=== PATIENT | male | born 1975 | race Two or more races ===

== ENCOUNTER 2019-08-09 09:24 | Emergency (ER) | payer SELFPAY ==
[~2019-08-09] VITALS: Ht 177.8 cm; Wt 87.1 kg
--- NOTE | 2019-08-09 09:39 | NUR ---
ED Nurse Note: PT came in due to flu symptoms and c/o bodyache 9/10, chills, and fatigue. Pt denies N/V. Pt states taking tylenol 2 tabs at 0430 and ibuprofen 2 tabs 0800. Pt VSS, NAD, ERMD at bedside. Will continue to monitor patient.
[2019-08-09 09:42] VITALS: BP 120/82
[2019-08-09] MEDS ORDERED: IBUPROFEN200 MG ORAL (09:43)
[2019-08-09] MEDS ORDERED: TYLENOL EXTRA500 MG ORAL (09:43)
[2019-08-09] MEDS ORDERED: Oseltamivir 75mg cap ORAL ONE (09:45)
[2019-08-09] MEDS ORDERED: Acetaminophen 500mg (ES) tab ORAL ONE (09:45)
--- NOTE | 2019-08-09 09:45 | Emergency Room Report ---
History of Present Illness General Chief Complaint: Flu Like Symptoms Source: Patient Present Illness HPI Disclaimer: Please note that this report is being documented using [employer] technology. This can lead to erroneous entry secondary to incorrect interpretation by the dictating instrument. HPI: 44-year-old male presents for evaluation of flulike symptoms. Patient states he has felt diffuse body aches, fevers, sweats, chills, fatigue, headaches, nasal congestion and nonproductive cough since yesterday morning. He has been staying in the hospital with his girlfriend after she was recovering from surgery. She was diagnosed with influenza A several days ago. His symptoms began yesterday morning. He denies vomiting or diarrhea. Has been medicating himself with Tylenol and Motrin to control his fevers at home with good effect. Continues to eat and drink though he does report a decreased appetite. Denies any dysuria, hematuria, abdominal pain. PMH: Denies PSH: Reviewed Allergies: Denies Social Hx: Denies Allergies: Coded Allergies: No Known Allergies (Unverified , 08/09/19) Nursing Documentation-PMH Past Medical History: No History, Except For Hx Asthma: Yes Review of Systems All Other Systems: negative except mentioned in HPI Physical Exam Vital Signs Date Time Temp Pulse Resp B/P (MAP) Pulse Ox O2 Delivery O2 Flow Rate FiO2 08/09/19 09:30 99.7 120 16 121/80 (94) 95 Room Air General: Awake and alert, no acute distress HEENT: NC/AT. EOMI. noninjected sclera. No sinus tenderness. Neck: Supple, trachea midline, no cervical lymphadenopathy Cardiovascular: Tachycardic. S1 and S2 normal. No murmur appreciated Resp: Normal work of breathing. No cough, wheezing or crackles appreciated Abdomen: Abdomen is soft, nondistended. Nontender Skin: Intact. No abrasions, laceration or rash over the exposed skin MSK: Normal tone and bulk. Moving all extremities. No obvious deformity. Muscles are diffusely tender Neuro: Awake and alert. Mentating appropriately. Medical Decision Making Diagnostic Impression: Primary Impression: Influenza A ER Course 44-year-old male presents for evaluation of 1 day of flulike symptoms in the setting of exposure to influenza A from his girlfriend. Likely, the patient has influenza we will send a flu swab to confirm though given the high suspicion we will start treating with oseltamavir now. Last took Motrin approximately 3 hours ago. Will treat with Tylenol and hydrate orally here for his tachycardia. He is afebrile. Otherwise well-appearing and in no acute distress though does appear fatigued. Do not believe he requires other emergent labs, imaging or acute intervention at this time. Microbiology Date/Time Source Procedure Growth Status 08/09/19 09:38 Nasal Nares - Final Complete 08/09/19 09:38 Nasal Nares - Final Complete Reevaluation Time: 10:18 Last Vital Signs Date Time Temp Pulse Resp B/P (MAP) Pulse Ox O2 Delivery O2 Flow Rate FiO2 08/09/19 09:30 99.7 120 16 121/80 (94) 95 Room Air Reevaluation Impression Swabs returned positive for influenza A. He was given his first dose of Tamiflu here in the emergency department. Will be discharged on additional 5 days of Tamiflu. Continue NSAIDs to treat his fever and encouraged him to drink plenty of fluids to stay hydrated. Discussed hand hygiene with the patient. He is well-appearing and heart rate is improving after oral hydration and Tylenol. He will be discharged to follow-up with his PMD on an outpatient basis. Discussed reasons to return to the emergency department. He understands and agrees with this treatment plan. Disposition: HOME, SELF-CARE Condition: Stable Scripts Oseltamivir Phosphate (Tamiflu) 75 Mg Capsule 75 MG ORAL TWICE A DAY for 5 Days, #9 CAP Prov: Magno Kevin MD 08/09/19 Magno Kevin MD Aug 09, 2019 09:45
--- NOTE | 2019-08-09 09:45 | NUR ---
ED Nurse Note: Pt urine collected and sent to lab. Flu swab sent to lab.
[2019-08-09] MEDS ORDERED: TAMIFLU75 MG ORAL (09:57)
[2019-08-09 10:25] VITALS: BP 120/66
--- NOTE | 2019-08-09 10:25 | NUR ---
ED Nurse Note: Pt cleared by health care Provider for discharge. DC instructions/prescription was given and explained to pt and verbalized understanding of teachings. All medical devices such as ID band removed. Pt is AAO x4, ambulatory and left with all personal belongings.
== END 2019-08-09 10:25 | disposition home or self-care (01) ==
LOC: EMR 09:55
DX: J09.X2 Influenza due to identified novel influenza A virus with other respiratory manifestations (principal); J45.909 Unspecified asthma, uncomplicated
CPT/HCPCS: 86710; 99283